=== PATIENT | female | born 1995 | race Asian ===

== ENCOUNTER 2018-07-10 22:01 | Emergency (ER) | payer OTHER ==
[2018-07-10 22:06] VITALS: BP 129/87
[2018-07-10] MEDS ORDERED: predniSONE 20 MG TAB PO ONE (23:24)
--- NOTE | 2018-07-10 23:28 | EDPHY ---
H & P Smoking Status: Never smoked Time Seen by Provider: 07/10/18 23:16 HPI/ROS: Chief complaint: Rash History of present illness: This is a 23-year-old female who presents to the emergency department for evaluation of a rash. She reports she has had a rash for the last few days that has been waxing and waning. She describes red itching lesions to her torso and extremities. She denies precipitating factors. She denies alleviating factors. She denies other associated signs or symptoms including no fevers or cold symptoms, no potential contact irritants, environmental exposures, sick contacts, etc (Nikolas Ross) Physical Exam: General Appearance: Alert and no distress. Eyes: Pupils equal and round no injection. ENT: No angioedema. Respiratory: Chest is non tender, lungs are clear to auscultation. Cardiac: regular rate and rhythm Musculoskeletal: Neck is supple and non tender. Extremities have full range of motion and are non tender. Skin: Patient has diffuse urticarial rash to the body. No vesicles, pustules or petechiae. (Nikolas Ross) Constitutional: Initial Vital Signs Temperature (C) 36.6 C 07/10/18 22:02 Heart Rate 74 07/10/18 22:02 Respiratory Rate 18 07/10/18 22:02 Blood Pressure 129/87 H 07/10/18 22:02 O2 Sat (%) 98 07/10/18 22:02 O2 Delivery Mode Room Air Allergies/Adverse Reactions: No Known Allergies Allergy (Verified 07/10/18 22:04) Home Medications: Medication Instructions Recorded predniSONE 40 mg PO DAILY 3 Days tablet 07/10/18 MDM/Departure - MDM Medications Given: Discontinued Medications Prednisone (Prednisone) 40 mg PO EDNOW ONE Stop: 07/10/18 23:25 Last Admin: 07/10/18 23:33 Dose: 40 mg ED Course/Re-evaluation: Patient seen under the supervision of my secondary supervising physician Dr. Anila urias. Patient presents to the emergency department for evaluation of a rash. She appears to have an urticarial rash. She is nontoxic. I will treat with steroids and antihistamines. She is asked to follow up with primary care doctor for recheck. Return precautions are given. Patient voiced understanding and agreement with plan. (Nikolas Ross) PHYSICIAN DOCUMENTATION: The patient was evaluated and managed by the Physician Customer Service Correspondence Clerk. My co- signature indicates that I have reviewed this chart and I agree with the findings and plan of care as documented. I am the secondary supervising physician. (Anila Redman) Differential Diagnosis: Included but not limited to allergic reaction, contact dermatitis, cold urticaria, doubtful infectious in nature (Nikolas Ross) - Depart Disposition: Home, Routine, Self-Care Clinical Impression: Urticaria Condition: Good Instructions: Acute Rash (ED) Additional Instructions: Follow-up with a primary care doctor for recheck Take steroids as prescribed until finished even feeling better Take an antihistamine such as Claritin or Zyrtec for the next 3-4 days If symptoms worsen or new symptoms develop return to the emergency room for recheck Prescriptions: predniSONE 40 mg PO DAILY 3 Days tablet Referrals: NONE *PRIMARY CARE P,. [Primary Care Provider] - As per Instructions Dylon Schreiber MD [Medical Doctor] - As per Instructions
== END 2018-07-10 23:50 | disposition home or self-care (01) ==
DX: L50.9 Urticaria, unspecified (principal)
CPT/HCPCS: J7512